=== PATIENT | male | born 1980 | race Caucasian/White ===

== ENCOUNTER 2017-08-11 14:25 | Emergency (ER) | payer OTHER ==
[2017-08-11] MEDS ORDERED: Diazepam 5 MG TAB ONE (14:56)
== END 2017-08-11 15:24 | disposition home or self-care (01) ==
LOC: BURERS 14:25
DX: F41.9 Anxiety disorder, unspecified (principal); F17.210 Nicotine dependence, cigarettes, uncomplicated; F32.9 Major depressive disorder, single episode, unspecified
CPT/HCPCS: 99284

== ENCOUNTER 2018-10-17 07:00 | Emergency (ER) | payer SELFPAY | END 2018-10-17 08:24 | disposition home or self-care (01) | LOC: BURERS 07:00 | DX: G25.71 Drug induced akathisia (principal); T42.6X5A Adverse effect of other antiepileptic and sedative-hypnotic drugs, initial encounter; F41.9 Anxiety disorder, unspecified; F32.9 Major depressive disorder, single episode, unspecified; F17.210 Nicotine dependence, cigarettes, uncomplicated; Z79.899 Other long term (current) drug therapy | CPT/HCPCS: 99283 ==

== ENCOUNTER 2022-02-18 12:02 | Outpatient (CLI) | payer OTHER | END 2022-02-18 12:03 | disposition home or self-care (01) | LOC: BURRAD 12:02 | PROVIDERS: ATTEND Physician Assistant | DX: M54.42 Lumbago with sciatica, left side (principal) | CPT/HCPCS: 72100 ==